=== PATIENT | female | born 1965 | race Caucasian/White ===

== ENCOUNTER 2017-10-28 07:24 | Emergency (ER) | payer MEDICARE, MEDICAID ==
[~2017-10-28] VITALS: Ht 175.3 cm; Wt 96.0 kg
[2017-10-28] MEDS ORDERED: ACETAMINOPHEN 325MG TABLET PO ONE (10:15)
[2017-10-28 11:05] LABS: CLARITY URINE CLEAR (CLEAR); COLOR URINE YELLOW (YELLOW); KETONES URINE 1+ (NEGATIVE); LEUKOCYTE ESTERASE URINE NEGATIVE (NEGATIVE); NITRITE URINE NEGATIVE (NEGATIVE); OCCULT BLOOD URINE NEGATIVE (NEGATIVE); PROTEIN URINE NEGATIVE (NEGATIVE); SPECIFIC GRAVITY URINE 1.024 (1.005-1.030)
[2017-10-28 11:43] LABS: HCG SCREEN NEGATIVE
[2017-10-28 12:00] VITALS: BP 124/69
== END 2017-10-28 12:03 | disposition home or self-care (01) ==
LOC: ER 09:06
DX: J06.9 Acute upper respiratory infection, unspecified (principal); R30.0 Dysuria; F17.210 Nicotine dependence, cigarettes, uncomplicated; Z88.0 Allergy status to penicillin; Z98.890 Other specified postprocedural states
CPT/HCPCS: 71010; 81003; 84703; 87804; 99285

== ENCOUNTER 2022-04-28 14:05 | Emergency (ER) | payer MEDICAID, MEDICARE ==
[~2022-04-28] VITALS: Ht 175.3 cm; Wt 90.0 kg
[2022-04-28 21:19] LABS: BASOPHILS % 0.5 % (0.0-2.0); EOSINOPHILS % 2.2 % (0.0-5.0); HEMATOCRIT. 42.6 % (36.0-48.0); HEMOGLOBIN. 14.2 g/dL (12.0-16.0); LYMPHOCYTES % 31.6 % (20.0-50.0); MEAN CORPUSCULAR HEMOGLOBIN 30.2 pg (28.0-32.0); MEAN CORPUSCULAR VOLUME 90.3 fL (81.0-99.0); NEUTROPHILS % 56.7 % (40.0-76.0); PLATELET 251 x1000/uL (130-400); RED BLOOD CELL COUNT 4.71 mill/uL (4.2-5.4); RED CELL DISTRIBUTION WIDTH 13.1 % (11.6-14.6)
[2022-04-28 21:26] LABS: CHLORIDE 107 mEq/L (98-107)
[2022-04-28] MEDS ORDERED: FURO-151 MT (22:30)
[2022-04-28 23:02] VITALS: BP 124/78
== END 2022-04-28 23:04 | disposition home or self-care (01) ==
LOC: ER 14:05
DX: R60.9 Edema, unspecified (principal); Z98.890 Other specified postprocedural states; Z88.0 Allergy status to penicillin
CPT/HCPCS: 36415; 71045; 80053; 83880; 84484; 85025; 93005; 93970; 99285